=== PATIENT | female | born 1995 | race Caucasian/White ===

== ENCOUNTER 2017-01-23 03:53 | Emergency (ER) | payer OTHER ==
[~2017-01-23] VITALS: Ht 162.6 cm; Wt 74.4 kg
[2017-01-23 03:57] VITALS: BP 122/70
--- NOTE | 2017-01-23 04:01 | NUR ---
Patient to bed 08.
--- NOTE | 2017-01-23 04:08 | NUR ---
Dr. Harris evaluating patient at bedside.
--- NOTE | 2017-01-23 04:10 | NUR ---
21 Y/O F W/C/O PELVIC/VAGINAL PAIN X 1 MTH ON AND OFF. PT STATES SHE HASN'T BEING ABLE TO URINE X 2 HRS.
[2017-01-23] MEDS ORDERED: KETOROLAC 60 MG/2 ML VIAL IM ONE (04:15)
--- NOTE | 2017-01-23 04:35 | NUR ---
URINE COLLECTED VIA URINARY CATHERER. PT TOLERATED WELL. 300 ML OF URINE OUTPUT NOTED. ER NOTIFIED. PT REPOSITION TO A COMFORTABLE POSITION.
[2017-01-23 04:37] LABS: HEMATOCRIT 44.4 % (36-48); HEMOGLOBIN 14.6 g/dL (12.0-16.0); MEAN CORPUSCULAR HEMOGLOBIN 30 pg (27-31); MEAN CORPUSCULAR HGB CONC 33 g/dL (33-37); MEAN CORPUSCULAR VOLUME 92 fL (80-94); PLATELET COUNT (AUTO) 388 K/uL (140-450); RED BLOOD CELL COUNT(AUTO) 4.81 MIL/uL (4.20-5.40); RED CELL DISTRIBUTION WIDTH 12.9 % (11.6-13.7); WHITE BLOOD COUNT (AUTO) 9.4 K/uL (4.8-10.8)
[2017-01-23 04:46] LABS: BASOPHILS % (MANUAL) 1 % (0-2); EOSINOPHILS % (MANUAL) 1 % (0-4); LYMPHOCYTES % (MANUAL) 26 % (20-46); MONOCYTES % (MANUAL) 6 % (5-12)
[2017-01-23 04:47] LABS: ANION GAP 17.5 (8-16); CARBON DIOXIDE 25.7 mmol/L (21-32); CREATININE 0.6 mg/dL (0.6-1.3); POTASSIUM 4.2 mmol/L (3.5-5.1)
[2017-01-23 04:49] LABS: BARBITURATE, URINE NEG. ng/ml (NEG <=200); BENZODIAZEPINE, URINE NEG. ng/mL (NEG <=200); CANNABINOID, URINE POS. ng/mL (NEG <=50); COCAINE, URINE NEG. ng/mL (NEG <=300); OPIATE, URINE NEG. ng/mL (NEG <=2000); PHENCYCLIDINE SCREEN,URINE NEG. ng/mL (NEG <=25)
[2017-01-23 04:53] LABS: ALBUMIN 4.6 g/dL (3.4-5.0); TOTAL BILIRUBIN 0.2 mg/dL (0.0-1.0)
--- NOTE | 2017-01-23 04:55 | NUR ---
PT RESTING IN BED, VSS. NO S/S OF DISTRESS NOTED AT THE MOMENT.
[2017-01-23] MEDS ORDERED: NACL 0.9% 1,000 ML IV ONE (05:00)
--- NOTE | 2017-01-23 05:19 | NUR ---
Patient taken to CT.
--- NOTE | 2017-01-23 05:49 | NUR ---
PT BACK FROM CT SCAN.
--- NOTE | 2017-01-23 06:58 | NUR ---
REPORT RECEIVED FROM CHARANJIT TABARES
--- NOTE | 2017-01-23 07:03 | NUR ---
Pt report given to RAYSHAWN SHARIF. Transfer of care at this time.
--- NOTE | 2017-01-23 07:10 | NUR ---
PT RESTING LAYING ON RIGHT SIDE---NO S/S RESP DISTRESS, CONTINUES TO WAIT FOR RESULTS TO RETURN AND DISPO
[2017-01-23 08:17] LABS: APPEARANCE,URINE CLEAR (CLEAR); BILIRUBIN,URINE NEGATIVE (NEGATIVE); BLOOD, URINE 1+ (NEGATIVE); COLOR,URINE YELLOW (YELLOW); LEUKOCYTE ESTERASE ,URINE TRACE (NEGATIVE); NITRITE, URINE NEGATIVE (NEGATIVE); UGLUCOSE NEGATIVE (NEGATIVE)
--- NOTE | 2017-01-23 08:17 | NUR ---
PELVIC EXAM DONE BY DR RAPP. PT TOLERATED PROCEDUR WELL. Addendum: 01/23/17 at 0820 by [facility] SENT TO LAB.
[2017-01-23 08:26] LABS: RBC,URINE 3-10 (FEW) /HPF (0-5)
[2017-01-23] MEDS ORDERED: SULFAMETH/TRIMETH DS 800/160MG 1 TAB PO ONE (08:35)
[2017-01-23 08:54] VITALS: BP 101/59
[2017-01-25 06:16] LABS: CHLAMYDIA TRACHOMATIS AMP DNA Negative (Negative)
== END 2017-01-23 08:54 | disposition home or self-care (01) ==
LOC: MED 03:53
DX: N39.0 Urinary tract infection, site not specified (principal)
CPT/HCPCS: 36415; 74178; 80053; 80305; 81001; 81025; 85025; 87086; 87210; 87491; 96360; 96372; 99285; C1758; J1885; J7030; Q9967